=== PATIENT | female | born 1945 | race Caucasian/White ===

== ENCOUNTER → 2017-02-26 | Outpatient (CLI) | payer OTHER, SELFPAY ==
[~2017-02-26] MED LIST: ACETAMINOPHEN PO; ADVIL200 M1; ALBUTEROL 0.5ML INH; ALBUTEROL17 GM INH; ALPRAZOLAM PO; ALPRAZOLAM0.25 MG PO; AMLODIPINE BESYL5 MG PO; ASACOL400 MG PO; ASPIRIN81 MG PO; ATENOLOL PO; ATENOLOL50 MG; AURALGAN EAR DROPS AS; AZITHROMYCIN PO; BLACK COHOSH PO; CALCIUM 600 +1 EA13 PO; CENTRUM PO; COLLAGEN SUPPORT PO; DARVOCET-N 1001 TAB PO; DICYCLOMINE HCL20 MG PO; DIOVAN HCT 160-1 TAB PO; FLAGYL PO; HUMIBID DM1 TAB PO; IMODIUM2 MG PO; KCL PO; KEFLEX PO; KLOR-CON PO; LASIX PO; LASIX20 MG PO; LIPITOR PO; LISINOPRIL-HCTZ1 T14 PO; MACROBID100 M1; MONODOX100 MG PO; NEURONTIN300 MG PO; NIFEDIAC CC; NIFEDICAL PO; NIFEDIPINE 30 MG; NIFEDIPINE PO; NIFEDIPINE XR PO; NORCO1 TAB 10/3; OMEGA 3 FISH1 CAP.EC PO; PRAVASTATIN SOD40 MG PO; PREDNISONE PO; PRILOSEC PO; PROTONIX PO; PROVENTIL0.83 MG/ML IH; PROVENTIL0.83 MG/ML INH; SYMBICORT 160/4.6 G1 IH; SYMBICORT 16010.2 GM INH; SYMBICORT INH; SYMBICORT80 INH; TYLOX 5/500 CAP1 CAP PO; TYLOX1 CAP 5/50 PO; VITAMIN B-1100 M1 PO; VOLTAREN75 MG PO; ZESTORETIC 20/11 TAB PO; ZESTRIL5 MG PO
--- NOTE | ~2017-02-26 | EKG ---
PATIENT: KALA CASTRO UNIT #: [id number] Ventricular Rate: 58 BPM Atrial Rate: 58 BPM P-R Interval: 130 ms QRS Duration: 96 ms Q-T Interval: 414 ms QTC Calculation(Bezet): 406 ms P [place]: 26 degrees Calculated R [place]: 53 degrees Calculated T [place]: 47 degrees Diagnosis Line: Sinus bradycardia Diagnosis Line: Otherwise normal ECG Diagnosis Line: When compared with ECG of 25-APR-2016 19:31, Diagnosis Line: No significant change was found Diagnosis Line: Confirmed by JASSON AUGUSTIN MD ([id number]) on 02/27/2017 Diagnosis Line: 9:14:34 PM INTERPRETING MD: CHARLI HADLEY
[2017-02-26 11:03] LABS: CALCIUM SERUM 9.6 mg/dL (8.4-10.2); CREATININE SERUM 0.5 mg/dL (0.6-1.4); GLOM FILT RATE Estimated 97.4 mL/min (>60); POTASSIUM 3.9 mmol/L (3.5-5.1)
== END | disposition home or self-care (01) ==
LOC: CAMB 08:36
PROVIDERS: Surgery
DX: Z01.818 Encounter for other preprocedural examination (principal); D17.22 Benign lipomatous neoplasm of skin and subcutaneous tissue of left arm
CPT/HCPCS: 36415; 80048; 93005

== ENCOUNTER → 2017-02-28 | Day surgery (SDC) | payer OTHER, SELFPAY ==
--- NOTE | ~2017-02-28 | OR ---
Unit #: [id number] #: [id number] Patient: KALA CASTRO [id number] [address] [place], [place] [address] [id number] O MR#: [id number] NAME: KALA CASTRO ROOM: Date of Procedure: 02/28/2017 Admission Date: 02/28/2017 Surgeon: Chance Cerda M.D. : 1945 Attending Physician: Chance Cerda M.D. Primary Care Physician: Maxime Jones Jr., M.D. OPERATIVE REPORT PREOPERATIVE DIAGNOSIS Enlarging painful lipoma, left forearm. POSTOPERATIVE DIAGNOSIS Enlarging painful lipoma, left forearm. PROCEDURE PERFORMED Excision of enlarging painful lipoma, flexor surface left forearm, 6 cm with layered closure. ANESTHESIA Monitored anesthesia care with 1% Xylocaine plain local anesthesia. FINDINGS The area was excised completely and was consistent with lipoma. SPECIMENS Sent to Pathology. COMPLICATIONS None apparent. CONDITION The patient tolerated the procedure well. INDICATIONS FOR PROCEDURE The patient is a 71-year-old white female, with enlarging painful subcutaneous mass consistent with a lipoma in the left forearm. She presents at this time for excision for pathologic diagnosis and treatment. DESCRIPTION OF PROCEDURE After obtaining informed consent as well as receiving preoperative antibiotics, the patient was brought to the operating room and after adequate monitored anesthesia care, had the left forearm prepped and draped in a sterile fashion. After adequate local anesthesia was obtained, an elliptical incision was made with a knife over the top of the area within and taken down through the skin to the level of the lesion. The lesion was excised circumferentially with electrocautery with good hemostasis and it was sent to pathology. The wound was irrigated and hemostasis was obtained with the Bovie, infiltrated with some additional local anesthesia. The deep tissues were reapproximated with interrupted 3-0 Vicryl suture taking a bite of the base of the wound in order to Unit #: [id number] #: [id number] Patient: KALA CASTRO obliterate any space. The skin was closed with surgical nimesh. A dry dressing was applied followed by a Tegaderm dressing. Needle counts, sponge counts, and instrument counts were all correct as reported by the scrub nurse x2. The patient went from the operating room to the recovery room in stable condition. Dictated by... Reanna Kemp/vaughn TD: 03/01/2017 02:00 JOB #: [id number] [facility] OPERATIVE REPORT Page 1 of 1 X Chance Cerda MD X PROCEDURE OPERATIVE NOTE
== END | disposition home or self-care (01) ==
LOC: CSUR 08:04
DX: D17.22 Benign lipomatous neoplasm of skin and subcutaneous tissue of left arm (principal); J44.9 Chronic obstructive pulmonary disease, unspecified; K21.9 Gastro-esophageal reflux disease without esophagitis; M19.90 Unspecified osteoarthritis, unspecified site; I34.0 Nonrheumatic mitral (valve) insufficiency; I10 Essential (primary) hypertension; E78.5 Hyperlipidemia, unspecified; E87.6 Hypokalemia; G47.00 Insomnia, unspecified; Z90.710 Acquired absence of both cervix and uterus; Z98.51 Tubal ligation status; Z90.49 Acquired absence of other specified parts of digestive tract; Z87.19 Personal history of other diseases of the digestive system; Z88.0 Allergy status to penicillin; Z88.2 Allergy status to sulfonamides; Z88.8 Allergy status to other drugs, medicaments and biological substances; Z88.1 Allergy status to other antibiotic agents; Z79.899 Other long term (current) drug therapy; Z79.891 Long term (current) use of opiate analgesic
CPT/HCPCS: 88304; J2250; J3010; J3370

== ENCOUNTER 2017-03-20 10:00 | Emergency (ER) | payer OTHER, SELFPAY ==
--- NOTE | ~2017-03-20 | CR72 ---
[facility] A Service of [facility] RADIOLOGY TEXT RESULTS PATIENT: KALA CASTRO LOCATION: SED : 45 UNIT #: [id number] AGE: [address]: Abel Mead MD SEX: F ORDER DR: [id number] [place] [id number] E MR#: [id number] Acc #: [id number] NAME: KALA CASTRO : 1945 SEX: F STUDY DATE/TIME: 03/20/2017 10:44 UNIT: SED ROOM: STUDY DESCRIPTION: CR Chest Single View Portable Attending Physician: Abel Mead M.D. Ordering Physician: Abel Mead M.D. Primary Care Physician: Maxime Jones Jr., M.D. MEDICAL IMAGING REPORT This report is preliminary unless electronic signature is present. EXAM Portable chest 03/20 INDICATIONS Shortness of air for 1 week, worse over the last 2 to 3 days. Prior history of myocardial infarction. FINDINGS AP portable chest is compared with 04/25/2016. Cardiomegaly is stable. The lungs are clear. No pneumothorax is seen. There is an old right proximal humerus fracture. IMPRESSION Stable cardiomegaly. No active disease. Dictated by... Isiah Guzman Jr., M.D. THIS IS AN ELECTRONICALLY VERIFIED REPORT Isiah Guzman Jr., M.D. at 03/20/2017 4:42 PM JAKEK/verona TD: 03/20/2017 11:46 JOB #: [id number] MEDICAL IMAGING REPORT Page 1 of 1
--- NOTE | ~2017-03-20 | EKG ---
PATIENT: KALA CASTRO UNIT #: [id number] Ventricular Rate: 56 BPM Atrial Rate: 56 BPM P-R Interval: 132 ms QRS Duration: 96 ms Q-T Interval: 418 ms QTC Calculation(Bezet): 403 ms P [place]: 95 degrees Calculated R [place]: 62 degrees Calculated T [place]: 55 degrees Diagnosis Line: Sinus bradycardia Diagnosis Line: Otherwise normal ECG Diagnosis Line: When compared with ECG of 26-FEB-2017 08:52, Diagnosis Line: No significant change was found Diagnosis Line: Confirmed by JASSON AUGUSTIN MD ([id number]) on 03/28/2017 Diagnosis Line: 11:51:42 AM INTERPRETING MD: CHARLI HADLEY
[~2017-03-20 10:00] MED LIST changes: -ALBUTEROL 0.5ML INH; -ASPIRIN81 MG PO; -CALCIUM 600 +1 EA13 PO; -PROTONIX PO
== END 2017-03-20 11:47 | disposition home or self-care (01) ==
LOC: SED 10:00
DX: J44.0 Chronic obstructive pulmonary disease with (acute) lower respiratory infection (principal); J44.1 Chronic obstructive pulmonary disease with (acute) exacerbation; J20.9 Acute bronchitis, unspecified; Z88.0 Allergy status to penicillin; Z88.2 Allergy status to sulfonamides; Z88.1 Allergy status to other antibiotic agents; Z79.899 Other long term (current) drug therapy
CPT/HCPCS: 71010; 93005; 94640; 96372; 99284; J1040

== ENCOUNTER → 2017-04-22 | Outpatient (CLI) | payer OTHER ==
[~2017-04-22] MED LIST changes: +ALBUTEROL 0.5ML INH; +ASPIRIN81 MG PO; +CALCIUM 600 +1 EA13 PO; +PROTONIX PO
--- NOTE | ~2017-04-22 | BD1 ---
[facility] A Service of [facility] RADIOLOGY TEXT RESULTS PATIENT: KALA CASTRO LOCATION: [facility] : 45 UNIT #: [id number] AGE: [address]: Maxime Jones MD SEX: F ORDER DR: [id number] [facility] [address] [place], [place] [address] [id number] O MR#: [id number] Acc #: [id number] NAME: KALA CASTRO. : 1945 SEX: F STUDY DATE/TIME: 04/22/2017 9:34 UNIT: [facility] ROOM: STUDY DESCRIPTION: BD Dexa Bone Dens 1+ Site Attending Physician: Maxime Jones Jr., M.D. Ordering Physician: Maxime Jones Jr., M.D. Primary Care Physician: Maxime Jones Jr., M.D. MEDICAL IMAGING REPORT This report is preliminary unless electronic signature is present EXAM DXA scan DATE 04/22/2017 HISTORY 71-year-old postmenopausal female for osteoporosis screening. 25-year smoking history. Previous history of right arm fracture. COMPARISON DXA scan 03/27/2012 FINDINGS L1 to L4 total bone mineral density is 0.984 gm/cm2 with T-score -0.6 and Z-score 1.6, within normal limits. This represents a 3.2% increase in bone mineral density since 03/27/2012 which is statistically significant. The left femoral neck bone mineral density 0.616 gm/cm2 with T-score -2.1 and Z-score -0.2, corresponding to the range of osteopenia. This represents a 15.2% decrease in bone mineral density since 03/27/2012 which is statistically significant. IMPRESSION 1. Osteopenia within the left femoral neck. Statistically-significant decrease in bone mineral density in the left femoral neck since 03/27/2012. 2. Normal bone mineral density of the lumbar spine. Statistically significant increase in bone mineral density at this location since 03/27/2012. Dictated by... Rizwana Núñez M.D. [facility] A Service of [facility] RADIOLOGY TEXT RESULTS PATIENT: KALA CASTRO LOCATION: [facility] : 45 UNIT #: [id number] AGE: [address]: Maxime Jones MD SEX: F ORDER DR: THIS IS AN ELECTRONICALLY VERIFIED REPORT Rizwana Núñez M.D. at 04/25/2017 8:30 AM Caro TD: 04/22/2017 16:00 JOB #: [id number] MEDICAL IMAGING REPORT Page 1 of 1 COPY
== END | disposition home or self-care (01) ==
LOC: CWCC 09:08
DX: Z13.820 Encounter for screening for osteoporosis (principal); S42.309A Unspecified fracture of shaft of humerus, unspecified arm, initial encounter for closed fracture; Z78.0 Asymptomatic menopausal state; M85.88 Other specified disorders of bone density and structure, other site
CPT/HCPCS: 77080

== ENCOUNTER 2017-06-08 10:16 | Emergency (ER) | payer OTHER ==
--- NOTE | ~2017-06-08 | CT16 ---
[facility] A Service of [facility] RADIOLOGY TEXT RESULTS PATIENT: KALA CASTRO LOCATION: SED : 45 UNIT #: [id number] AGE: [address]: Eric Solis MD SEX: F ORDER DR: [id number] [address] [address] [id number] E MR#: [id number] Acc #: [id number] NAME: KALA CASTRO. : 1945 SEX: F STUDY DATE/TIME: 06/08/2017 12:11 UNIT: SED ROOM: STUDY DESCRIPTION: CT Angio Chest for PE Attending Physician: Eric Solis M.D. Ordering Physician: Nguyen Pena M.D. Primary Care Physician: Maxime Jones Jr., M.D. MEDICAL IMAGING REPORT This report is preliminary unless electronic signature is present. EXAM CT chest with contrast, pulmonary arteriography protocol, 06/08/2017. HISTORY 72-year-old female in the ED complaining of 3-week history of shortness of air. One week history of chest pressure/pain, worsening today. Nonproductive cough. TECHNIQUE CT examination of the chest was performed without IV contrast. CTA images of the pulmonary arteries were reformatted in multiple planes. This CT exam was performed with one or more of the following radiation dose reduction techniques: automatic exposure control, adjustment of mA and/or kV according to patient size, and iterative reconstruction. COMPARISON CTA chest, 03/09/2016. FINDINGS No pulmonary embolism is demonstrated. Thoracic aorta is normal in caliber. Heart size is normal, and there is no pericardial effusion. Lung images show no active disease. No acute pulmonary infiltrate or pleural effusion. Mild focal scarring in the right middle lobe and both lower lobes. No rib fracture or other chest wall lesion is identified. Limited images through the uppermost abdomen are unremarkable. IMPRESSION 1. No acute abnormality within the chest. No evidence of pulmonary embolism. Normal-caliber thoracic aorta. 2. Mild multifocal pulmonary scarring in the right middle lobe and both lower lobes. The lungs clear. No pleural or pericardial effusion. [facility] A Service of [facility] RADIOLOGY TEXT RESULTS PATIENT: KALA CASTRO [place] [facility] [place] UNIT #: [id number] AGE: [address]: Eric Solis MD SEX: F ORDER DR: Dictated by... Tong Santos M.D. THIS IS AN ELECTRONICALLY VERIFIED REPORT Tong Santos M.D. at 06/09/2017 12:51 PM Prasanna TD: 06/08/2017 22:42 JOB #: [id number] MEDICAL IMAGING REPORT Page 1 of 1
--- NOTE | ~2017-06-08 | EKG ---
PATIENT: KALA CASTRO UNIT #: [id number] Ventricular Rate: 64 BPM Atrial Rate: 64 BPM P-R Interval: 134 ms QRS Duration: 94 ms Q-T Interval: 390 ms QTC Calculation(Bezet): 402 ms P [place]: 31 degrees Calculated R [place]: 51 degrees Calculated T [place]: 55 degrees Diagnosis Line: Normal sinus rhythm Diagnosis Line: Normal ECG Diagnosis Line: When compared with ECG of 20-MAR-2017 09:54, Diagnosis Line: No significant change was found Diagnosis Line: Confirmed by JASEN AARON MD ([id number]) on Diagnosis Line: 06/14/2017 9:00:33 AM INTERPRETING MD: AGNIESZKA HADLEY
--- NOTE | ~2017-06-08 | CR72 ---
[facility] A Service of [facility] RADIOLOGY TEXT RESULTS PATIENT: KALA CASTRO LOCATION: SED : 45 UNIT #: [id number] AGE: [address]: Eric Solis MD SEX: F ORDER DR: [id number] [address] [address] [id number] E MR#: [id number] Acc #: [id number] NAME: KALA CASTRO. : 1945 SEX: F STUDY DATE/TIME: 06/08/2017 10:37 UNIT: SED ROOM: STUDY DESCRIPTION: CR Chest Single View Portable Attending Physician: Eric Solis M.D. Ordering Physician: Nguyen Pena M.D. Primary Care Physician: Maxime Jones Jr., M.D. MEDICAL IMAGING REPORT This report is preliminary unless electronic signature is present. EXAM Portable chest. HISTORY Cough and shortness breath for the past 3 weeks. Chronic emphysema. TECHNIQUE Single AP view of the chest was obtained and compared with 03/20/2017. FINDINGS The heart and mediastinum are stable since the previous examination. Both lungs are clear with normal vascular markings and no pleural fluid is seen. IMPRESSION No active disease. No new infiltrates are seen since the previous exam. Dictated by... Isiah Ngo M.D. THIS IS AN ELECTRONICALLY VERIFIED REPORT Isiah Ngo M.D. at 06/09/2017 9:58 AM ANA/kimberly TD: 06/08/2017 20:44 JOB #: [id number] MEDICAL IMAGING REPORT Page 1 of 1
[~2017-06-08 10:16] MED LIST changes: -ALBUTEROL 0.5ML INH; -ASPIRIN81 MG PO; -CALCIUM 600 +1 EA13 PO; -PROTONIX PO
[2017-06-08] MEDS ORDERED: CALCIUM 600 +1 EA13 PO (10:31)
[2017-06-08 10:53] LABS: BASOPHIL% 0.8 % (0-2.5); EOSINOPHIL# 0.1 X10e3 (0-0.7); EOSINOPHIL% 1.9 % (0.0-7.0); HEMATOCRIT 39.4 % (35.0-45.0); HEMOGLOBIN 13.1 gm/dL (12.0-16.0); LYMPHOCYTE% 30.4 % (17.0-45.0); MEAN CELL VOLUME 92.4 FL (83-96); MEAN CORPUSCULAR HEMOGLOBIN 30.8 PG (28-34); MEAN CORPUSCULAR HGB CONC 33.3 g/dL (30-36); MEAN PLATELET VOLUME 8.2 FL (6.5-11.5); MONOCYTE# 0.5 X10e3 (0-1.0); MONOCYTE% 7.8 % (3.0-12.0); NEUTROPHIL# 3.9 X10e3 (1.5-7.1); NEUTROPHIL% 59.1 % (40-75); PLATELET COUNT 214 X10e3 (140-420); RED BLOOD COUNT 4.26 X10e (3.90-5.30); WHITE BLOOD COUNT 6.6 X10e3 (4.0-10.5)
[2017-06-08 10:55] LABS: DIFF IND NO
[2017-06-08 11:01] LABS: PROTHROMBIN TIME (PATIENT) 11.4 SECONDS (9.5-12.4)
[2017-06-08 11:06] LABS: POC - CKMB <1.0 ng/mL (0.0-7.9); POC - TROPONIN <0.05 ng/mL (<=0.05)
[2017-06-08 11:09] LABS: PARTIAL THROMBOPLASTIN TIME 25.6 SECONDS (25.6-38.1)
[2017-06-08 11:10] LABS: ALBUMIN SERUM 3.8 g/dL (3.5-5.0); BILIRUBIN, DIRECT 0.3 mg/dL (0.0-0.2); BILIRUBIN,INDIRECT 1.4 mg/dL (0.0-0.9); BILIRUBIN,TOTAL 1.7 mg/dL (0.2-2.0); CALCIUM SERUM 9.2 mg/dL (8.4-10.2); CREATININE SERUM 0.6 mg/dL (0.6-1.4); GLOM FILT RATE Estimated 91.1 mL/min (>60); POTASSIUM 3.6 mmol/L (3.5-5.1); PROTEIN TOTAL SERUM 7.1 g/dL (6.0-8.3)
[2017-06-08 12:17] LABS: POC - CKMB <1.0 ng/mL (0.0-7.9); POC - TROPONIN <0.05 ng/mL (<=0.05)
== END 2017-06-08 13:55 | disposition home or self-care (01) ==
LOC: SED 10:16
PROVIDERS: Emergency Medicine
DX: J44.1 Chronic obstructive pulmonary disease with (acute) exacerbation (principal); E78.5 Hyperlipidemia, unspecified; I10 Essential (primary) hypertension; Z90.49 Acquired absence of other specified parts of digestive tract; Z90.710 Acquired absence of both cervix and uterus; Z88.0 Allergy status to penicillin; Z88.2 Allergy status to sulfonamides; Z88.1 Allergy status to other antibiotic agents; Z79.899 Other long term (current) drug therapy
CPT/HCPCS: 36415; 71010; 71275; 80048; 80076; 82553; 83605; 83880; 84484; 85025; 85610; 85730; 87040; 93005; 94640; 96365; 96367; 96375; 99285; J0456; J0696; J2930; Q9967

== ENCOUNTER 2017-06-12 12:17 | Observation (INO) | payer OTHER ==
--- NOTE | ~2017-06-12 | EKG ---
PATIENT: KALA CASTRO UNIT #: [id number] Ventricular Rate: 61 BPM Atrial Rate: 61 BPM P-R Interval: 134 ms QRS Duration: 96 ms Q-T Interval: 392 ms QTC Calculation(Bezet): 394 ms P [place]: 37 degrees Calculated R [place]: 74 degrees Calculated T [place]: 51 degrees Diagnosis Line: Normal sinus rhythm Diagnosis Line: Normal ECG Diagnosis Line: When compared with ECG of 12-JUN-2017 12:25, Diagnosis Line: (unconfirmed) Diagnosis Line: No significant change was found Diagnosis Line: Confirmed by KHRIS BHANDARI MD ([id number]) on 06/14/2017 Diagnosis Line: 10:52:15 AM INTERPRETING MD: THONY HADLEY
--- NOTE | ~2017-06-12 | HP ---
Unit #: [id number] #: [id number] Patient: KALA CASTRO [id number] [address] [place], [place] [address] [id number] MR#: [id number] NAME: KALA CASTRO ROOM: 572 Age: 72 Sex: F Admission Date: 06/12/2017 : 1945 Attending Physician: Patric Nolan M.D. Primary Care Physician: Maxime Jones Jr., M.D. HISTORY AND PHYSICAL REASON FOR ADMISSION Chest pain. HISTORY OF PRESENT ILLNESS Ms. Castro is a 72-year-old white female known to have hypertension for a number of years who came in complaining of recurrent episodes of chest discomfort described as pressure and heaviness as if somebody was standing on her chest that occurs at rest, during day-to-day activities at home, and has even awakened her from sleep on numerous occasions about 2 o'clock in the morning. There is occasional radiation of this pain to the inner aspect of the left upper arm, and there is no associated nausea or diaphoresis but she complains of shortness of breath. She had gone to the emergency room at [facility] on one or two occasions with similar symptoms and was seen by Dr. Jones this afternoon because the patient thinks she has worsening chest pain from heart disease. She has complained of ankle edema now for the last three to four months which has no diurnal variation. She denies any increased fluid intake but has not been on any diuretic therapy. She denies any history of previous MO, strokes, or transient ischemic attacks. There is no history of rheumatic fever, heart murmur, diabetes mellitus, or hyperlipidemia. Patient has suffered from anxiety and is being treated with antidepressant medicines. SOCIAL AND PERSONAL HISTORY She stopped smoking a number of years ago with a total smoking history of about five or 10 years. She does not use alcohol. FAMILY HISTORY Her mother had atrial fibrillation. No immediate member of the family has ischemic heart disease. PHYSICAL EXAMINATION GENERAL: Examination reveals a morbidly obese, middle-aged female in no acute distress. VITAL SIGNS: Blood pressure is 143/73 mmHg. NECK: No jugular venous distention. Both carotids have a normal upstroke without any bruits. CARDIAC: Apical impulse is palpable in fifth intercostal space in midclavicular line and is normal. Both heart sounds are normal. No rubs or clicks are audible. There is no murmur. CHEST: Normal to palpation and percussion. There are fine rales scattered in both lung monae posteriorly. No evidence of pleural effusion is noted. ABDOMEN: Soft and nontender anterior abdominal wall. No Unit #: [id number] #: [id number] Patient: KALA CASTRO hepatosplenomegaly, free fluid, or masses. RECTAL: Deferred. CENTRAL NERVOUS SYSTEM: Within normal limits. DIAGNOSTIC STUDIES CARDIOLOGY: EKG shows normal sinus rhythm and is within normal limits. IMPRESSION 1. Chest pain secondary to ischemic heart disease versus gastroesophageal reflux disease. 2. Anxiety. 3. Obesity. 4. Leg edema secondary to amlodipine and/or Neurontin. 5. Hypertension under control. PLAN 1. The dose of Neurontin will be cut down. 2. Amlodipine will be stopped and small-dose diuretic added. 3. Patient was offered a Lexiscan Cardiolite study to rule out significant perfusion abnormalities or a cardiac catheterization. Family and the patient want her to have cardiac catheterization so that they know she does not have critical coronary artery stenosis. Cardiac catheterization will be performed tomorrow. She is being started on Protonix 40 mg daily and Imdur as antianginal therapy. 1. Dictated by Reanna Moss TD: 06/12/2017 17:49 JOB #: [id number] HISTORY AND PHYSICAL Page 1 of 1 X Patric Nolan MD HISTORY AND PHYSICAL
--- NOTE | ~2017-06-12 | CR72 ---
[facility] A Service of [facility] & [facility] RADIOLOGY TEXT RESULTS PATIENT: KALA CASTRO LOCATION: [facility] : 45 UNIT #: [id number] AGE: [address]: Louis Palomino MD SEX: F ORDER DR: [id number] [facility] [address] [place], [place] [address] [id number] MR#: [id number] Acc #: [id number] NAME: KALA CASTRO : 1945 SEX: F STUDY DATE/TIME: 06/12/2017 UNIT: [facility] ROOM: STUDY DESCRIPTION: CR Chest Single View Portable Ordering Physician: [facility] Primary Care Physician: Maxime Jones Jr., M.D. MEDICAL IMAGING REPORT This report is preliminary unless electronic signature is present EXAM Chest portable 06/12/2017 13:P25 hours CLINICAL HISTORY 72-year-old woman with 5-day history of shortness of air and chest pain. History of COPD, hypertension, prior myocardial infarction and cervical cancer. COMPARISON 06/08/2017 FINDINGS Portable upright chest demonstrates mild cardiomegaly unchanged. Aortic contours are stable. There is pulmonary venous distension increased from 06/08/2017. There is no definite edema or pneumonia. IMPRESSION Stable cardiomegaly with increase in pulmonary venous distension. No definite interstitial edema or pneumonia. No effusions. Dictated by... Marilia Perry M.D. THIS IS AN ELECTRONICALLY VERIFIED REPORT Marilia Perry M.D. at 06/12/2017 2:30 PM TREM/verona TD: 06/12/2017 13:52 JOB #: [id number] MEDICAL IMAGING REPORT Page 1 of 1 COPY
--- NOTE | ~2017-06-12 | EKG ---
PATIENT: KALA CASTRO UNIT #: [id number] Ventricular Rate: 62 BPM Atrial Rate: 62 BPM P-R Interval: 124 ms QRS Duration: 96 ms Q-T Interval: 380 ms QTC Calculation(Bezet): 385 ms P [place]: 14 degrees Calculated R [place]: 60 degrees Calculated T [place]: 43 degrees Diagnosis Line: Normal sinus rhythm Diagnosis Line: Normal ECG Diagnosis Line: When compared with ECG of 08-JUN-2017 10:23, Diagnosis Line: (unconfirmed) Diagnosis Line: No significant change was found Diagnosis Line: Confirmed by EBONY CRISOSTOMO MD ([id number]) on Diagnosis Line: 06/13/2017 10:38:24 AM INTERPRETING MD: KRANTHI HADLEY
[~2017-06-12 12:17] MED LIST changes: +CALCIUM 600 +1 EA13 PO
[2017-06-12 13:56] LABS: BASOPHIL% 0.4 % (0-2.5); EOSINOPHIL# 0.1 X10e3 (0-0.7); EOSINOPHIL% 1.3 % (0.0-7.0); HEMATOCRIT 41.6 % (35.0-45.0); HEMOGLOBIN 13.4 gm/dL (12.0-16.0); LYMPHOCYTE# 3.4 X10e3 (1.0-3.5); LYMPHOCYTE% 30.7 % (17.0-45.0); MEAN CELL VOLUME 93.2 FL (83-96); MEAN CORPUSCULAR HGB CONC 32.2 g/dL (30-36); MEAN PLATELET VOLUME 8.4 FL (6.5-11.5); MONOCYTE# 0.8 X10e3 (0-1.0); MONOCYTE% 7.1 % (3.0-12.0); NEUTROPHIL# 6.8 X10e3 (1.5-7.1); NEUTROPHIL% 60.5 % (40-75); PLATELET COUNT 230 X10e3 (140-420); RED BLOOD COUNT 4.47 X10e (3.90-5.30); RED CELL DISTRIBUTION WIDTH 14.3 % (11.0-15.5); WHITE BLOOD COUNT 11.2 X10e3 (4.0-10.5)
[2017-06-12 13:58] LABS: DIFF IND NO
[2017-06-12 14:10] LABS: PARTIAL THROMBOPLASTIN TIME 23.3 SECONDS (23.5-31.3); PROTHROMBIN TIME (PATIENT) 10.6 SECONDS (10.0-11.7)
[2017-06-12 14:17] LABS: BILIRUBIN, DIRECT 0.3 mg/dL (0.0-0.2); BILIRUBIN,TOTAL 1.3 mg/dL (0.2-2.0); CALCIUM SERUM 9.5 mg/dL (8.4-10.2); CREATININE SERUM 0.4 mg/dL (0.6-1.4); GLOM FILT RATE Estimated 104.1 mL/min (>60); POTASSIUM 3.7 mmol/L (3.5-5.1); PROTEIN TOTAL SERUM 7.2 g/dL (6.0-8.3)
[2017-06-12 14:40] LABS: CK TOTAL 48 IU/L (26-140)
[2017-06-12] MEDS ORDERED: ALBUTEROL 0.5ML INH (15:20)
[2017-06-12 15:52] LABS: POC - CKMB <1.0 ng/mL (0.0-7.9); POC - TROPONIN <0.05 ng/mL (<=0.05)
[2017-06-12 21:24] LABS: THYROID STIMULATING HORMONE 1.31 uIU/ml (0.34-5.60)
[2017-06-12 21:33] LABS: FREE THYROXIN (T4) 0.87 ng/dL (0.58-1.64)
[2017-06-13 05:33] LABS: HEMATOCRIT 39.6 % (35.0-45.0); HEMOGLOBIN 12.7 gm/dL (12.0-16.0); MEAN CELL VOLUME 93.5 FL (83-96); MEAN CORPUSCULAR HGB CONC 32.1 g/dL (30-36); MEAN PLATELET VOLUME 8.9 FL (6.5-11.5); RED BLOOD COUNT 4.24 X10e (3.90-5.30); RED CELL DISTRIBUTION WIDTH 14.4 % (11.0-15.5); WHITE BLOOD COUNT 10.3 X10e3 (4.0-10.5)
[2017-06-13 06:04] LABS: CALCIUM SERUM 8.7 mg/dL (8.4-10.2); CREATININE SERUM 0.5 mg/dL (0.6-1.4); GLOM FILT RATE Estimated 96.7 mL/min (>60)
[2017-06-13] MEDS ORDERED: PROTONIX PO (12:04)
[2017-06-13] MEDS ORDERED: ASPIRIN81 MG PO (12:04)
== END 2017-06-13 12:17 | disposition home or self-care (01) ==
LOC: CED 12:17 → C5C 15:50 → CEDOF 15:50 → CED 16:13 → CEDOF 17:38 → C5C 17:38
PROVIDERS: Emergency Medicine; Internal Medicine Cardiovascular Disease
DX: R07.89 Other chest pain (principal); F41.9 Anxiety disorder, unspecified; E66.01 Morbid (severe) obesity due to excess calories; R60.0 Localized edema; I10 Essential (primary) hypertension; I51.7 Cardiomegaly; Z87.891 Personal history of nicotine dependence; Z82.49 Family history of ischemic heart disease and other diseases of the circulatory system
CPT/HCPCS: 36415; 71010; 80048; 80061; 80076; 82550; 82553; 84439; 84443; 84484; 85025; 85027; 85610; 85730; 93005; 99285; C1769; C1887; C1894; C9113; G0378; J1644; J1940; J2250; J3010